=== PATIENT | female | born 1985 | race African-American/Black ===

== ENCOUNTER 2024-03-24 09:37 | Emergency (ER) | payer SELFPAY | END 2024-03-24 11:05 | disposition home or self-care (01) | LOC: ERS 09:37 | DX: J06.9 Acute upper respiratory infection, unspecified (principal); J45.901 Unspecified asthma with (acute) exacerbation; Z20.828 Contact with and (suspected) exposure to other viral communicable diseases | CPT/HCPCS: 87428; 99283 ==